=== PATIENT | male | born 1980 | race Caucasian/White ===

== ENCOUNTER 2020-04-09 13:57 | Emergency (ER) | payer SELFPAY ==
[~2020-04-09] VITALS: Ht 180.3 cm; Wt 70.1 kg
--- NOTE | 2020-04-09 14:32 | PHYS DOC ---
Past History Past Medical History: No Pertinent History Past Surgical History: No Surgical History Alcohol Use: Heavy Additional Alcohol Information: was drinking 6 beers or 1 pint whiskey/day; none in 1 week Social History Narrative: last 2 days ago General Adult EDM: Chief Complaint: MULTIPLE COMPLAINTS HPI: HPI: Patient is a 39-year-old male who presents with right-sided abdominal pain with swelling. Patient reports that he has been vomiting and on he vomited blood. Patient is also reporting blood in his stool. Patient states he is also having bilateral groin pain. Patient denies any injury. Patient also reports of fever for the last 2 weeks. Patient states "I think it is my liver". Patient denies dysuria or frequency but does report having trouble urinating. Patient reports that he drinks 6 pack a day or a pint of whiskey. Patient denies drug use. Denies history of hepatitis. Patient denies any other health history. Review of Systems: Review of Systems: Constitutional: Reports fever Eyes: Denies change in visual acuity HENT: Denies nasal congestion or sore throat Respiratory: Denies cough or shortness of breath Cardiovascular: Denies chest pain or edema GI: Reports abdominal pain, nausea, vomiting, bloody stools, vomiting blood : Denies dysuria Musculoskeletal: Denies back pain or joint pain Integument: Denies rash Neurologic: Denies headache, focal weakness or sensory changes Endocrine: Denies polyuria or polydipsia Lymphatic: Denies swollen glands Psychiatric: Denies depression or anxiety Allergies: Allergies: Allergies Coded Allergies Type Severity Reaction Last Updated Verified No Known Drug Allergies 04/09/20 No Physical Exam: PE: Constitutional: Well developed, well nourished, no acute distress, non-toxic appearance. [] HENT: Normocephalic, atraumatic, bilateral external ears normal, oropharynx moist, no oral exudates, nose normal. [] Eyes: PERRLA, EOMI, conjunctiva normal, no discharge. [] Neck: Normal range of motion, no tenderness, supple, no stridor. [] Cardiovascular:Heart rate regular rhythm, no murmur [] Lungs & Thorax: Bilateral breath sounds clear to auscultation [] Abdomen: Bowel sounds normal, soft, right-sided abdominal, no masses, no pulsatile masses. [] Skin: Warm, dry, no erythema, no rash. [] Back: No tenderness, no CVA tenderness. [] Extremities: No tenderness, no cyanosis, no clubbing, ROM intact, no edema. [] Neurologic: Alert and oriented X 3, normal motor function, normal sensory f unction, no focal deficits noted. [] Psychologic: Affect normal, judgement normal, mood normal. [] Current Patient Data: Vital Signs: Vital Signs Date Time Temp Pulse Resp B/P (MAP) Pulse Ox O2 Delivery O2 Flow Rate FiO2 04/09/20 14:07 99.0 133 27 153/83 (106) 97 Room Air EKG: EKG: Sinus Tachycardia. HR 104 BPM[] Radiology/Procedures: Radiology/Procedures: []EXAM: Abdomen and pelvis CT without intravenous contrast. HISTORY: Right upper quadrant pain. TECHNIQUE: Computed tomographic images of the abdomen and pelvis were obtained without intravenous contrast. Multiplanar reformatting was performed. *One or more of the following individualized dose reduction techniques were utilized for this examination: 1. Automated exposure control. 2. Adjustment of the mA and/or kV according to patient size. 3. Use of iterative reconstruction technique. COMPARISON: None. FINDINGS: Evaluation of the lower thorax demonstrates no infiltrate, pleural effusion or suspicious pulmonary nodule. There is a small nodule anterior to the heart likely due to a small pericardial lymph node. There is hepatomegaly and hepatic steatosis. There is suspected recanalization of the umbilical vein. There is color wall thickening. The pancreas is unremarkable. The spleen is mildly enlarged. There is a splenorenal shunt. There is no hydronephrosis. There is no nephrolithiasis. There is no appendicitis. There is no bowel obstruction. The aorta is normal in caliber. There is a small amount of free fluid within the dependent portions the pelvis. There is no suspicious osseous lesion. IMPRESSION: 1. Hepatomegaly and hepatic steatosis. There are superimposed findings consistent with portal hypertension due to cirrhosis. 2. Small amount of ascites. 3. Mild gallbladder wall thickening. This can be seen with intrinsic liver disease. This is not clearly within limits to suggest cholecystitis. However, given a history of right upper quadrant pain, gallbladder sonography can be performed for better characterization if clinically indicated. Electronically signed by: Jadyn Beard MD (04/09/2020 3:01 PM) [id number] Heart Score: Risk Factors: Risk Factors: DM, Current or recent (<one month) smoker, HTN, HLP, family history of CAD, obesity. Risk Scores: Score 0 - 3: 2.5% MACE over next 6 weeks - Discharge Home Score 4 - 6: 20.3% MACE over next 6 weeks - Admit for Clinical Observation Score 7 - 10: 72.7% MACE over next 6 weeks - Early Invasive Strategies Course & Med Decision Making: Course & Med Decision Making Pertinent Labs and Imaging studies reviewed. (See chart for details) []Patient is a 39-year-old male who presents with right-sided abdominal pain with swelling. Patient reports that he has been vomiting and on he vomited blood. Patient is also reporting blood in his stool. Patient states he is also having bilateral groin pain. Patient denies any injury. Patient also reports of fever for the last 2 weeks. Patient states "I think it is my liver". Patient denies dysuria or frequency but does report having trouble urinating. Patient reports that he drinks 6 pack a day or a pint of whiskey. Patient denies drug use. Denies history of hepatitis. Patient denies any other health history. CT shows. Hepatomegaly and hepatic steatosis. There are superimposed findings consistent with portal hypertension due to cirrhosis.Small amount of ascites.Mild gallbladder wall thickening. This can be seen with intrinsic liver disease. This is not clearly within limits to suggest cholecystitis. However, given a history of right upper quadrant pain, gallbladder sonography can be performed for better characterization if clinically indicated. Abdominal ultrasound ordered to rule out Cookie. Ultrasound is negative. Bili is 4.3. AST 185. Patient given phone number to [facility] for follow-up. Hydrocodone ordered for pain management at home. Zofran ordered for nausea. Patient informed to have close follow-up. Mukesh Disclaimer: Mukesh Disclaimer: This electronic medical record was generated, in whole or in part, using a voice recognition dictation system. Departure Departure: Impression: Primary Impression: Right upper quadrant abdominal pain Disposition: 01 DC HOME SELF CARE/HOMELESS Condition: GOOD Referrals: PCP,NO (PCP) Patient Instructions: Alcoholic Liver Disease, [id number] Additional Instructions: [facility] [address] [place] [id number] . I have also given you a prescription for hydrocodone and Zofran. Please follow-up with the [facility] as soon as you can to get referral and further care. EMERGENCY DEPARTMENT GENERAL DISCHARGE INSTRUCTIONS Thank you for coming to [facility] (ED) today and trusting us with you care. We trust that you had a positivie experience in our Emergency Department. If you wish to speak to the department management, you may call the director at [phone]. YOUR FOLLOW UP INSTRUCTIONS ARE FOLLOWS: 1. Do you have a private Doctor? If you do not have a private doctor, please ask for a resource list of physicians or clinics that may be able to assist you with follow up care. 2. The Emergency Physician has interpreted your x-rays. The X-Ray specialist will also review them. If there is a change in the findings, you will be notified in 48 hours when at all possible. 3. A lab test or culture has been done, your results will be reviewed and you will be notified if you need a change in treatment. ADDITIONAL INSTRUCTIONS AND INFORMATION: 1. Your care today has been supervised by a physician who is specially trained in emergency care. Many problems require more than one evaluation for a complete diagnosis and treatment. We recommend that you schedule your follow up appointment as recommended to ensure complete treatment of you illness or injury. If you are unable to obtain follow up care and continue to have a problem, or if your condition worsens, we recommend that you return to the ED. 2. We are not able to safely determine your condition over the phone nor are we able to give sound medical advice over the phone. For these safety reasons, if you call for medical advice we will ask you to come to the ED for further evaluation. 3. If you have any questions regarding these discharge instructions please call the ED at [phone]. SAFETY INFORMATION: In the interest of safety, wellness, and injury prevention; we encourage you to wear your sealbelt, if you smoke; quite smoking, and we encourage family to use a protective helmet for bicycling and other sporting events that present an increased risk for head injury. IF YOUR SYMPTOMS WORSEN OR NEW SYMPTOMS DEVELOP, OR YOU HAVE CONCERNS ABOUT YOUR CONDITION; OR IF YOUR CONDITION WORSENS WHILE YOU ARE WAITING FOR YOUR FOLLOW UP APPOINTMENT; EITHER CONTACT YOUR PRIMARY CARE DOCTOR, THE PHYSICIAN WHOSE NAME AND NUMBER YOU WERE Darlene OBRIEN, OR RETURN TO THE ED IMMEDIATELY. Scripts Ondansetron Hcl (ZOFRAN) 4 Mg Tablet 4 MG PO TID for nausea for 10 Days, #30 TAB Prov: ALYSE BOWLES APRN 04/09/20 Hydrocodone Bit/Acetaminophen (HYDROCODONE-APAP 5-325 ) 1 Each Tablet 1 TAB PO PRN Q6HRS PRN for PAIN for 3 Days, #12 TAB 0 Refills Prov: ALYSE BOWLES APRN 04/09/20 ALYSE BOWLES APRN Apr 09, 2020 14:32
--- NOTE | 2020-04-09 15:03 | RAD ---
EXAM: Abdomen and pelvis CT without intravenous contrast. HISTORY: Right upper quadrant pain. TECHNIQUE: Computed tomographic images of the abdomen and pelvis were obtained without intravenous co ntrast. Multiplanar reformatting was performed. *One or more of the following individualized dose reduction techniques were utilized for this examina tion: 1. Automated exposure control. 2. Adjustment of the mA and/or kV according to patient size. 3. Use of iterative reconstruction technique. COMPARISON: None. FINDINGS: Evaluation of the lower thorax demonstrates no infiltrate, pleural effusion or suspicious p ulmonary nodule. There is a small nodule anterior to the heart likely due to a small pericardial lymp h node. There is hepatomegaly and hepatic steatosis. There is suspected recanalization of the umbilic al vein. There is color wall thickening. The pancreas is unremarkable. The spleen is mildly enlarged. There is a splenorenal shunt. There is no hydronephrosis. There is no nephrolithiasis. There is no a ppendicitis. There is no bowel obstruction. The aorta is normal in caliber. There is a small amount o f free fluid within the dependent portions the pelvis. There is no suspicious osseous lesion. IMPRESSION: 1. Hepatomegaly and hepatic steatosis. There are superimposed findings consistent with portal hyperte nsion due to cirrhosis. 2. Small amount of ascites. 3. Mild gallbladder wall thickening. This can be seen with intrinsic liver disease. This is not clear ly within limits to suggest cholecystitis. However, given a history of right upper quadrant pain, gal lbladder sonography can be performed for better characterization if clinically indicated. Electronically signed by: Jadyn Beard MD (04/09/2020 3:01 PM) [id number]
[2020-04-09 15:04] LABS: BASO # 0.1 x10^3/uL (0.0-0.2); BASO % 1 % (0-3); EOS # 0.1 x10^3/uL (0.0-0.7); EOS % 1 % (0-3); HEMOGLOBIN 14.5 g/dL (13.0-17.5); LYMPH # 0.8 x10^3/uL (1.0-4.8); LYMPH % 10 % (24-48); MEAN CORPUSCULAR HEMOGLOBIN 35 pg (25-35); MEAN CORPUSCULAR HGB CONC 34 g/dL (31-37); MEAN CORPUSCULAR VOLUME 103 fL (79-100); MONO # 1.3 x10^3/uL (0.0-1.1); MONO % 15 % (0-9); NEUT # 6.1 x10^3uL (1.8-7.7); NEUT % 73 % (31-73); PLATELET COUNT 99 x10^3/uL (140-400); RED BLOOD COUNT 4.16 x10^6/uL (4.30-5.70); RED CELL DISTRIBUTION WIDTH 15.7 % (11.5-14.5); WHITE BLOOD COUNT 8.4 x10^3/uL (4.0-11.0)
[2020-04-09 15:17] LABS: CALCIUM 8.4 mg/dL (8.5-10.1); CREATININE 0.6 mg/dL (0.7-1.3); GFR 150.8; POTASSIUM 3.2 mmol/L (3.5-5.1)
[2020-04-09 15:22] LABS: ALBUMIN 2.8 g/dL (3.4-5.0); ALBUMIN/GLOBULIN RATIO 0.7 (1.0-1.7); TOTAL BILIRUBIN 4.3 mg/dL (0.2-1.0); TOTAL PROTEIN 6.9 g/dL (6.4-8.2)
--- NOTE | 2020-04-09 15:28 | EKG ---
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
[2020-04-09 15:48] LABS: BILIRUBIN,URINE SMALL (NEG); CLARITY,URINE CLEAR; COLOR,URINE AMBER; GLUCOSE,URINE NEG (NEG)
[2020-04-09 15:49] LABS: BACTERIA,URINE 0 /HPF (0-FEW); NITRITE,URINE NEG (NEG); RBC,URINE OCC /HPF (0-2); WBC,URINE 0 /HPF (0-4)
[2020-04-09] MEDS ORDERED: ONDANSETRON PF 4 MG/2 ML VIAL. IVP ONE (16:15)
[2020-04-09] MEDS ORDERED: MORPHINE SULFATE 4 MG/ML DISP.SYRIN. IV ONE (16:15)
--- NOTE | 2020-04-09 16:25 | RAD ---
Exam: CT of abdomen and pelvis without contrast INDICATION: Right-sided abdominal pain TECHNIQUE: Sequential axial images through the abdomen and pelvis obtained without IV contrast. Sagit tiana and coronal reformatted images were reconstructed from the axial data and reviewed. Comparisons: None FINDINGS: Liver contour is normal. Increased echogenicity of the liver. Hepatopedal flow noted in the portal ve in. Gallbladder is contracted. No pericholecystic fluid. Common bile duct measures 3 mm diameter. Right kidney measures 11.9 cm in length. No hydronephrosis. IMPRESSION: 1. No sonographic evidence for acute cholecystitis. 2. Hepatic steatosis. 3. No right-sided hydronephrosis. Exposure: One or more of the following in the visualized dose reduction techniques were utilized for this examination: 1. Automated exposure control 2. Adjustment of the MA and/or KV according to patient size 3. Use of iterative of reconstructive technique Electronically signed by: Nedra Moulton MD (04/09/2020 4:23 PM) [facility]
[2020-04-09] MEDS ORDERED: HYDR-2155 PO (17:40)
[2020-04-09] MEDS ORDERED: ONDA4TAB7 PO (17:40)
[2020-04-09 17:54] LABS: FECAL OB PT POSITIVE (NEG)
[2020-04-09 18:00] VITALS: BP 121/70
== END 2020-04-09 18:00 | disposition home or self-care (01) ==
LOC: ER 13:57
DX: R10.11 Right upper quadrant pain (principal); R11.10 Vomiting, unspecified; K92.1 Melena
CPT/HCPCS: 36415; 74176; 76705; 80053; 80076; 81001; 82274; 83605; 83690; 85025; 86850; 86900; 86901; 87040; 93005; 96374; 96375; 99285; J2270; J2405

== ENCOUNTER 2020-08-03 16:07 | Emergency (ER) | payer SELFPAY ==
[~2020-08-03] VITALS: Ht 180.3 cm; Wt 74.3 kg
[~2020-08-03 16:07] MED LIST: HYDR-2155 PO; ONDA4TAB7 PO
[2020-08-03 17:18] LABS: BASO # 0.1 x10^3/uL (0.0-0.2); BASO % 1 % (0-3); EOS # 0.2 x10^3/uL (0.0-0.7); EOS % 1 % (0-3); HEMATOCRIT 39.6 % (39.0-53.0); HEMOGLOBIN 13.4 g/dL (13.0-17.5); LYMPH % 14 % (24-48); MEAN CORPUSCULAR HEMOGLOBIN 36 pg (25-35); MEAN CORPUSCULAR HGB CONC 34 g/dL (31-37); MEAN CORPUSCULAR VOLUME 105 fL (79-100); MONO # 2.3 x10^3/uL (0.0-1.1); MONO % 16 % (0-9); NEUT # 9.4 x10^3uL (1.8-7.7); NEUT % 68 % (31-73); PLATELET COUNT 115 x10^3/uL (140-400); RED BLOOD COUNT 3.76 x10^6/uL (4.30-5.70); RED CELL DISTRIBUTION WIDTH 17.6 % (11.5-14.5); WHITE BLOOD COUNT 13.9 x10^3/uL (4.0-11.0)
[2020-08-03] MEDS ORDERED: IV NORMAL SALINE 100ML 100 ML ONE ×2 (17:32→18:56)
--- NOTE | 2020-08-03 17:33 | RAD ---
EXAM: ULTRASOUND ABDOMEN COMPLETE CLINICAL HISTORY: JAUNDICE, ABDOMINAL DISTENSION COMPARISON: None available. TECHNIQUE: Ultrasound of the upper abdomen was performed. FINDINGS: The pancreas is poorly visualized. The liver measures 23.7 cm in length in the right mid clavicular line. Increased hepatic echogenicit y relative to the right kidney consistent with hepatic steatosis. There are no focal liver lesions. Hepatofugal flow in the main portal vein. Gallbladder is contracted and demonstrates diffuse wall thickening measuring up to 6 mm. Sonographic Lewis's sign is reported as present. The common bile duct measures 0.7 cm. The spleen measures 11.4 cm. The right kidney measures 11.0 cm in bipolar length. Normal renal cortical echotexture and thickness. No focal renal lesion, hydronephrosis or shadowing renal calculus. The left kidney measures 11.4 cm in bipolar length. Normal renal cortical echotexture and thickness. No focal renal lesion, hydronephrosis or shadowing renal calculus. Visualized portions of the abdominal aorta and inferior vena cava are unremarkable. There is moderate to large amount of abdominal ascites. IMPRESSION: 1. Gallbladder wall thickening, which could relate to acute or chronic cholecystitis or potentially b e secondary to hepatocellular disease. Correlate with laboratory values. Similarly thickened gallblad lester wall also noted on exam of 04/09/2020. Sonographic Lewis's sign is reported as present. 2. Reversal of flow in the main portal vein with moderate to large amount of abdominal ascites consis tent with portal venous hypertension. 3. Hepatomegaly and hepatic steatosis. 4. Prominent common bile duct measures 0.7 cm, previously 0.3 cm on exam of 04/09/2020. Electronically signed by: Matt Leon MD (08/03/2020 5:31 PM) [facility]
[2020-08-03 17:36] LABS: % LYMPHS 21 % (24-48); % MONOS 10 % (0-10); % SEGS 69 % (35-66); ALBUMIN/GLOBULIN RATIO 0.5 (1.0-1.7); CALCIUM 7.4 mg/dL (8.5-10.1); CREATININE 0.6 mg/dL (0.7-1.3); DIRECT BILIRUBIN 6.2 mg/dL (0.0-0.2); PLATELET CLUMP PRESENT; PLT ESTIMATE DECREASED (ADEQUATE); TOTAL PROTEIN 6.3 g/dL (6.4-8.2)
[2020-08-03 17:37] LABS: ANISOCYTOSIS SLIGHT
[2020-08-03 18:00] LABS: POTASSIUM 2.9 mmol/L (3.5-5.1)
[2020-08-03 18:01] LABS: LACTATE DEHYDROGENASE 243 U/L (85-227); LIPASE 170 U/L (73-393)
[2020-08-03] MEDS ORDERED: POTASSIUM CHLORIDE 20 MEQ TABLET.ER. PO ONE (18:15)
[2020-08-03] MEDS ORDERED: NORMAL SALINE IV ONE (18:30)
[2020-08-03 18:34] VITALS: BP 100/73
[2020-08-03] MEDS ORDERED: IV NORMAL SALINE 1,000ML 1,000 ML IV ONE (18:45)
[2020-08-03] MEDS ORDERED: IBUPROFEN 600 MG TABLET. PO ONE (18:45)
--- NOTE | 2020-08-03 19:00 | PHYS DOC ---
Past History Past Medical History: No Pertinent History (DAMIAN LOZADA APRN) Past Surgical History: No Surgical History (DAMIAN LOZADA APRN) Alcohol Use: Heavy (DAMIAN LOZADA APRN) Adult General Chief Complaint Chief Complaint: ABDOMINAL PAIN HPI HPI Patient is a 40-year-old male who presents to the emergency department with a chief complaint of increasing abdominal pain, increasing abdominal size, and eyes starting to turn yellow for the past month and a half. Patient states he was seen here just over a month ago and was told to stop drinking alcohol, was given a follow-up at [facility], states that he has been I am able to obtain an appointment at [facility] related to being on a waiting list. Patient reports at his abdominal pain on the left and right low side that extends to his low pelvic area for the past month in which she rates an 8 out of 10 pain. Patient reports a 40 pound weight loss unintentional over the past year. Patient also states he is having red spots appear on his skin as well. Patient denies any diarrhea or constipation or seeing blood in his urine or stool. Patient denies nausea or vomiting, denies chest pains, denies any other physical complaints or physical concerns. Patient reports no allergies to medications and states he takes no medications at home, patient states that he has cut down his drinking to 2 cocktails per day, smokes 3 cigarettes a day, and occasionally smokes marijuana. (DAMIAN LOZADA APRN) Review of Systems Review of Systems 14 body systems of review of systems have been reviewed. See HPI for pertinent positives and negative responses, otherwise all other systems are negative, nonpertinent or noncontributory. (DAMIAN LOZADA APRN) Current Medications Current Medications Current Medications Medications (Trade) Dose Ordered Sig/Chicho Start Time Stop Time Status Last Admin Dose Admin Ceftriaxone Sodium 2 gm/ Sodium Chloride 100 ml @ 200 mls/hr 1X ONCE 08/03/20 17:00 08/03/20 17:29 DC 08/03/20 17:39 200 MLS/HR Ceftriaxone Sodium (Rocephin) 2 gm STK-MED ONCE 08/03/20 18:56 08/03/20 18:57 DC Fentanyl Citrate (Fentanyl 2ml Vial) 50 mcg 1X ONCE 08/03/20 18:45 08/03/20 18:46 DC Ibuprofen (Motrin) 600 mg 1X ONCE 08/03/20 18:45 08/03/20 18:46 DC Metronidazole 100 ml @ 100 mls/hr 1X ONCE 08/03/20 18:00 08/03/20 18:59 08/03/20 18:29 100 MLS/HR Potassium Chloride (Klor-Con) 40 meq 1X ONCE 08/03/20 18:15 08/03/20 18:28 DC 08/03/20 18:28 40 MEQ Sodium Chloride 100 ml @ As Directed STK-MED ONCE 08/03/20 18:56 08/03/20 18:57 DC (DAMIAN LOZADA APRN) Allergies Allergies Allergies Coded Allergies Type Severity Reaction Last Updated Verified No Known Drug Allergies 04/09/20 No (DAMIAN LOZADA APRN) Physical Exam Physical Exam Constitutional: Well developed, well nourished, no acute distress, patient appears toxic, jaundice, otherwise in no acute distress. Patient emaciated in appearance. HENT: Normocephalic, atraumatic. Eyes: PERRLA, EOMI, conjunctiva normal, no discharge. Yellowed tinted sclera. Neck: Normal range of motion, no tenderness, supple, no stridor. No nuchal rigidity, no meningismus signs. Cardiovascular:Heart rate regular rhythm, no murmur, heart rate tachycardic at 127 during physical exam. Lungs & Thorax: Bilateral breath sounds clear to auscultation all lung jeffers, no adventitious lung sounds appreciated. Abdomen:, no masses related to abdominal distention, no pulsatile masses. Pain to palpation all 4 quadrants of abdomen, no discoloration to abdomen appreciated, no bruising of the abdomen appreciated, hypertympanic bowel sounds per auscultation, abdomen distended, ascites appreciated. Skin: Warm, dry, no erythema, spider angiomas along neck face and trunk. Back: No tenderness, no CVA tenderness. Extremities: No tenderness, no cyanosis, no clubbing, ROM intact, no edema. Neurologic: Alert and oriented X 3, normal motor function, normal sensory function, no focal deficits noted. Psychologic: Affect normal, judgement normal, mood normal. (DAMIAN LOZADA APRN) Current Patient Data Vital Signs Vital Signs Date Time Temp Pulse Resp B/P (MAP) Pulse Ox O2 Delivery O2 Flow Rate FiO2 08/03/20 18:34 123 18 100/73 (82) 94 Room Air 08/03/20 17:43 100.4 Lab Results Laboratory Tests Test 08/03/20 16:45 White Blood Count 13.9 x10^3/uL Red Blood Count 3.76 x10^6/uL Hemoglobin 13.4 g/dL Hematocrit 39.6 % Mean Corpuscular Volume 105 fL Mean Corpuscular Hemoglobin 36 pg Mean Corpuscular Hemoglobin Concent 34 g/dL Red Cell Distribution Width 17.6 % Platelet Count 115 x10^3/uL Neutrophils (%) (Auto) 68 % Lymphocytes (%) (Auto) 14 % Monocytes (%) (Auto) 16 % Eosinophils (%) (Auto) 1 % Basophils (%) (Auto) 1 % Neutrophils # (Auto) 9.4 x10^3uL Lymphocytes # (Auto) 2.0 x10^3/uL Monocytes # (Auto) 2.3 x10^3/uL Eosinophils # (Auto) 0.2 x10^3/uL Basophils # (Auto) 0.1 x10^3/uL Segmented Neutrophils % 69 % Lymphocytes % 21 % Monocytes % 10 % Platelet Estimate Decreased Platelet Clumps, EDTA Present Anisocytosis Slight Macrocytosis Slight Sodium Level 134 mmol/L Potassium Level 2.9 mmol/L Chloride Level 96 mmol/L Carbon Dioxide Level 22 mmol/L Anion Gap 16 Blood Urea Nitrogen 4 mg/dL Creatinine 0.6 mg/dL Estimated GFR (Cockcroft-Gault) 150.0 BUN/Creatinine Ratio 7 Glucose Level 109 mg/dL Lactic Acid Level 3.5 mmol/L Calcium Level 7.4 mg/dL Total Bilirubin 11.0 mg/dL Direct Bilirubin 6.2 mg/dL Aspartate Amino Transf (AST/SGOT) 113 U/L Alanine Aminotransferase (ALT/SGPT) 38 U/L Alkaline Phosphatase 133 U/L Ammonia < 10 mcmol/L Lactate Dehydrogenase 243 U/L Total Protein 6.3 g/dL Albumin 2.0 g/dL Albumin/Globulin Ratio 0.5 Lipase 170 U/L Current Medications Medications (Trade) Dose Ordered Sig/Chicho Route PRN Reason Start Time Stop Time Status Last Admin Dose Admin Ceftriaxone Sodium 2 gm/ Sodium Chloride 100 ml @ 200 mls/hr 1X ONCE IV 08/03/20 17:00 08/03/20 17:29 DC 08/03/20 17:39 Ceftriaxone Sodium (Rocephin) 2 gm STK-MED ONCE IV 08/03/20 17:32 08/03/20 17:32 DC Sodium Chloride 100 ml @ As Directed STK-MED ONCE .ROUTE 08/03/20 17:32 08/03/20 17:32 DC Fentanyl Citrate (Fentanyl 2ml Vial) 50 mcg 1X ONCE IVP 08/03/20 18:00 08/03/20 18:01 DC 08/03/20 17:53 Metronidazole 100 ml @ 100 mls/hr 1X ONCE IV 08/03/20 18:00 08/03/20 18:59 DC 08/03/20 18:29 Potassium Chloride (Klor-Con) 40 meq 1X ONCE PO 08/03/20 18:15 08/03/20 18:28 DC 08/03/20 18:28 Sodium Chloride 2,220 ml @ 2,220 mls/hr Q1H ONCE IV 08/03/20 18:30 08/03/20 18:38 DC Fentanyl Citrate (Fentanyl 2ml Vial) 50 mcg 1X ONCE IVP 08/03/20 18:45 08/03/20 18:46 DC 08/03/20 19:07 Ibuprofen (Motrin) 600 mg 1X ONCE PO 08/03/20 18:45 08/03/20 18:46 DC 08/03/20 19:06 Sodium Chloride 1,000 ml @ 1,000 mls/hr 1X ONCE IV 08/03/20 18:45 08/03/20 19:44 08/03/20 18:45 Ceftriaxone Sodium (Rocephin) 2 gm STK-MED ONCE IV 08/03/20 18:56 08/03/20 18:57 DC Sodium Chloride 100 ml @ As Directed STK-MED ONCE .ROUTE 08/03/20 18:56 08/03/20 18:57 DC Laboratory Tests Test 08/03/20 16:45 White Blood Count 13.9 x10^3/uL (4.0-11.0) H Red Blood Count 3.76 x10^6/uL (4.30-5.70) L Hemoglobin 13.4 g/dL (13.0-17.5) Hematocrit 39.6 % (39.0-53.0) Mean Corpuscular Volume 105 fL (79-100) H Mean Corpuscular Hemoglobin 36 pg (25-35) H Mean Corpuscular Hemoglobin Concent 34 g/dL (31-37) Red Cell Distribution Width 17.6 % (11.5-14.5) H Platelet Count 115 x10^3/uL (140-400) L Neutrophils (%) (Auto) 68 % (31-73) Lymphocytes (%) (Auto) 14 % (24-48) L Monocytes (%) (Auto) 16 % (0-9) H Eosinophils (%) (Auto) 1 % (0-3) Basophils (%) (Auto) 1 % (0-3) Neutrophils # (Auto) 9.4 x10^3uL (1.8-7.7) H Lymphocytes # (Auto) 2.0 x10^3/uL (1.0-4.8) Monocytes # (Auto) 2.3 x10^3/uL (0.0-1.1) H Eosinophils # (Auto) 0.2 x10^3/uL (0.0-0.7) Basophils # (Auto) 0.1 x10^3/uL (0.0-0.2) Segmented Neutrophils % 69 % (35-66) H Lymphocytes % 21 % (24-48) L Monocytes % 10 % (0-10) Platelet Estimate Decreased (ADEQUATE) Platelet Clumps, EDTA Present Anisocytosis Slight Macrocytosis Slight Sodium Level 134 mmol/L (136-145) L Potassium Level 2.9 mmol/L (3.5-5.1) *L Chloride Level 96 mmol/L (98-107) L Carbon Dioxide Level 22 mmol/L (21-32) Anion Gap 16 (6-14) H Blood Urea Nitrogen 4 mg/dL (8-26) L Creatinine 0.6 mg/dL (0.7-1.3) L Estimated GFR (Cockcroft-Gault) 150.0 BUN/Creatinine Ratio 7 (6-20) Glucose Level 109 mg/dL (70-99) H Lactic Acid Level 3.5 mmol/L (0.4-2.0) H Calcium Level 7.4 mg/dL (8.5-10.1) L Total Bilirubin 11.0 mg/dL (0.2-1.0) H Direct Bilirubin 6.2 mg/dL (0.0-0.2) H Aspartate Amino Transferase (AST) 113 U/L (15-37) H Alanine Aminotransferase (ALT) 38 U/L (16-63) Alkaline Phosphatase 133 U/L (46-116) H Ammonia < 10 mcmol/L (11-34) L Lactate Dehydrogenase 243 U/L (85-227) H Total Protein 6.3 g/dL (6.4-8.2) L Albumin 2.0 g/dL (3.4-5.0) L Albumin/Globulin Ratio 0.5 (1.0-1.7) L Lipase 170 U/L (73-393) (DAMIAN LOZADA APRN) EKG EKG [] (DAMIAN LOZADA APRN) Radiology/Procedures Radiology/Procedures PATIENT: NEGIN MCDANIELS JACCOUNT: [id number] : 1980 LOCATION: ER AGE: 40 SEX: M EXAM STATUS: REG ER ORD. PHYSICIAN: DAMIAN LOZADA APRN REASON: JAUNDICE, ABDOMINAL DISTENSION PROCEDURE: ABDOMEN COMPLETE EXAM: ULTRASOUND ABDOMEN COMPLETE CLINICAL HISTORY: JAUNDICE, ABDOMINAL DISTENSION COMPARISON: None available. TECHNIQUE: Ultrasound of the upper abdomen was performed. FINDINGS: The pancreas is poorly visualized. The liver measures 23.7 cm in length in the right mid clavicular line. Increased hepatic echogenicity relative to the right kidney consistent with hepatic steatosis. There are no focal liver lesions. Hepatofugal flow in the main portal vein. Gallbladder is contracted and demonstrates diffuse wall thickening measuring up to 6 mm. Sonographic Lewis's sign is reported as present. The common bile duct measures 0.7 cm. The spleen measures 11.4 cm. The right kidney measures 11.0 cm in bipolar length. Normal renal cortical echotexture and thickness. No focal renal lesion, hydronephrosis or shadowing renal calculus. The left kidney measures 11.4 cm in bipolar length. Normal renal cortical echotexture and thickness. No focal renal lesion, hydronephrosis or shadowing renal calculus. Visualized portions of the abdominal aorta and inferior vena cava are unremarkable. There is moderate to large amount of abdominal ascites. IMPRESSION: 1. Gallbladder wall thickening, which could relate to acute or chronic cholecystitis or potentially be secondary to hepatocellular disease. Correlate with laboratory values. Similarly thickened gallbladder wall also noted on exam of 04/09/2020. Sonographic Lewis's sign is reported as present. 2. Reversal of flow in the main portal vein with moderate to large amount of ab dominal ascites consistent with portal venous hypertension. 3. Hepatomegaly and hepatic steatosis. 4. Prominent common bile duct measures 0.7 cm, previously 0.3 cm on exam of 04/09/2020. Electronically signed by: Hollie Leon MD (08/03/2020 5:31 PM) [facility] DICTATED AND SIGNED BY: HOLLIE LEON MD DATE: 08/03/20 172 CC: DAMIAN LOZADA APRN; JAZZY HOLGUIN DO; PCP,NO ~MTH0 0 (DAMIAN LOZADA APRN) Heart Score C/O Chest Pain: No Risk Factors: Risk Factors: DM, Current or recent (<one month) smoker, HTN, HLP, family history of CAD, obesity. Risk Scores: Risk Factors: DM, Current or recent (<one month) smoker, HTN, HLP, family history of CAD, obesity. (DAMIAN LOZADA APRN) Course & Med Decision Making Course & Med Decision Making Pertinent Labs and Imaging studies reviewed. (See chart for details) 40-year-old male, vital signs reviewed, presents emergency department complaining of skin and eyes turning yellow with abdominal pain for the past month and a half. Patient presented febrile with rapid heart rate, abdominal ascites, suspected SBP, will give 2 g Rocephin IV, order CBC, CMP, PT/PTT, lactic acid, blood cultures x2, lipase, CEA, AFP, urinalysis assay. During abdominal ultrasound, ED attending physician Dr. Holguin obtained abdominal fluid from ascites to send to the lab for study. Ordered 500 mg Flagyl IV as recommended by pharmacist for treatment of possible cholangitis. Abdominal ultrasound read by house radiologist concerning for cholecystitis. Lactic acid equal 3.5, potassium 2.9, patient given p.o. potassium, will initiate 1 L of normal saline IV. Patient was given 50 mcg IV fentanyl for 8 out of 10 pain. He reported his pain down to a 5 out of 10 after period of time, an additional 50 mcg of IV fentanyl was given IV, upon reevaluation of the patient and discussing with patient admission to [facility] for ongoing evaluation and treatment of ascites and spontaneous bacterial peritonitis, patient was amendable to this plan and states he will accept transfer to [facility]. 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 Called and discussed patient case with [facility] physician Dr. De Los Santos who agreed to accept patient in transfer to [facility] for the diagnosis of SBP, liver disease, ascites, jaundice. Transfer forms were reviewed and signed by ED attending physician Dr. Rocha. Patient is stable for transfer to [facility], awaiting EMS transport at this time. (DAMIAN LOZADA APRN) Course & Med Decision Making I oversaw on the above date of service of this patient. This patient was evaluated, examined, treated, and dispositioned from the emergency department by the mid-level practitioner. I intervened after hearing vital signs and history of presenting illness and high risk individual. I help navigate care and initiate treatment for SBP and cirrhotic patient who is septic and febrile. I discussed my concern for ascending cholangitis given findings of right upper quadrant pain, new onset jaundice and fever. I performed diagnostic paracentesis for review and guided care that included sepsis and early antibiotic management with recommendations to contact local surgery/GI services for hospital transfer. I left as my shift was over in the middle of care prior to receiving the lab values back and so, please see further documentation by oncoming attending physician regarding care of the patient thereafter. I reviewed note and agree to findings, plan of care, and disposition as stated. Critical Care Time This patient required critical care. Due to the fact that the patient required a significant amount of one on one physician - patient contact time, ordering and review of studies, arranging urgent treatment with development of a management plan, evaluation of patients response to treatment with frequent reassessments, and discussions with other providers this patient required 40 minutes of critical care time. Critical care time was indicated due to the inherent instability and/or potential for instability in this patient. The critical care time that is allocated to this patient is above and beyond any time spent on any other billable procedures performed on this patient. Electronically signed, Jazzy Holguin DO (JAZZY HOLGUIN DO) Mukesh Disclaimer Dragon Disclaimer This electronic medical record was generated, in whole or in part, using a voice recognition dictation system. (DAMIAN LOZADA APRN) Additional Procedures Progress Verbal and written consent obtained for diagnostic paracentesis. All questions and concerns patient had were addressed Patient placed in supine position and ultrasound was used to find adequate pocket of fluid. Betadine prep was used. 2 cc of lidocaine was used to create wheal and anesthetize skin. An 18-gauge needle was used to penetrate into abdominal cavity and aspiration of 30 mils yellow ascitic fluid was extracted for testing purposes only. Needle was then withdrawn and Band-Aid put over. There is no observed nor reported complications. All parts of procedure were sterile (JAZZY HOLGUIN DO) Departure Departure: Impression: Primary Impression: Spontaneous bacterial peritonitis Additional Impressions: Ascites Acute alcoholic liver disease Jaundice Hypokalemia Disposition: 02 [facility] (Patient transferred to [facility], Dr. De Los Santos excepting physician.) Condition: STABLE Referrals: PCP,NO (PCP) Problem Qualifiers Additional Impressions: Ascites Ascites type: other type Qualified Codes: R18.8 - Other ascites DAMIAN LOZADA APRN Aug 03, 2020 19:00 JAZZY HOLGUIN DO Aug 04, 2020 08:43
[2020-08-04 01:07] LABS: AFPT MARKER 3.4 ng/mL (0.0-8.3)
[2020-08-06 14:08] LABS: CEA 11.9 ng/mL (0.0-4.7)
== END 2020-08-03 20:19 | disposition short-term general hospital (02) ==
LOC: ER 16:07
DX: K65.2 Spontaneous bacterial peritonitis (principal); K70.10 Alcoholic hepatitis without ascites; R18.8 Other ascites; E87.6 Hypokalemia
CPT/HCPCS: 36415; 76700; 80053; 80076; 82042; 82105; 82140; 82378; 82945; 83605; 83615; 83690; 84157; 85007; 85025; 86705; 86709; 86803; 87040; 87070; 87340; 96365; 96367; 96375; 96376; 99285; J0696; J3010; J3490; J7030; 87071; 87075